=== PATIENT | female | born 1955 | race Caucasian/White ===

== ENCOUNTER 2017-10-31 23:57 | Emergency (ER) | payer OTHER ==
[2017-11-01 00:17] VITALS: BP 169/99; PULSE 119; TEMP 97.2; BMI 38.4
[2017-11-01] MEDS ORDERED: KETOROLAC TROMETHAMINE 60 MG/2 ML VIAL IM ONE (00:24)
[2017-11-01] MEDS ORDERED: KETOROLAC TROMETHAMINE 60 MG/2 ML VIAL ONE (00:27)
--- NOTE | 2017-11-01 00:35 | PDOC ---
History of Present Illness <Lillian Galindo - Last Filed: 11/01/17 00:35> - General History Source: Patient Exam Limitations: No Limitations - History of Present Illness Initial Comments: 11/01/17 01:13 The patient is a 62 year old female with a significant past medical history of HTN and COPD who presents to the emergency department complaining of left sided back pain for 1 week. The patient reports moderate left-buttock pain radiating down left leg. The patient denies any numbness or tingling. She states she can not handle the pain which is why visited the ED for further workup. She reports taking aleve, prednisone, and flexeril with no alleviation. She denies any history of falls. Of note, she had lumbar spine and iliac joint x-rays taken on 10/27. The patient denies chest pain, shortness of breath, headache, and dizziness. Denies fevers, chills, nausea, vomiting, bladder or bowel incontinence. Allergies: NKA Social history: No reported cigarette, alcohol, or drug use. PCP: Dr. Shi ([phone]) <Ju Allen - Last Filed: 11/01/17 01:14> - General Chief Complaint: Back Pain Stated Complaint: BACK PAIN Time Seen by Provider: 11/01/17 00:12 Past History - Past Medical History COPD: Yes HTN: Yes - Surgical History Appendectomy: Yes Cholecystectomy: Yes - Immunization History Immunization Up to Date: Yes - Suicide/Smoking/Psychosocial Hx Smoking Status: No Smoking History: Never smoked Years of Tobacco Use: 40 Have you smoked in the past 12 months: No Number of Cigarettes Smoked Daily: 20 If you are a former smoker, when did you quit?: 2 YRS AGO Information on smoking cessation initiated: No 'Breaking Loose' booklet given: 07/04/13 Hx Alcohol Use: No Drug/Substance Use Hx: No Substance Use Type: None Hx Substance Use Treatment: No <Lillian Galindo - Last Filed: 11/01/17 00:35> <Ju Allen - Last Filed: 11/01/17 01:14> - Past Medical History Allergies/Adverse Reactions: Allergies Allergy/AdvReac Type Severity Reaction Status Date / Time No Known Allergies Allergy Verified 11/01/17 00:16 Home Medications: Ambulatory Orders Losartan/Hydrochlorothiazide [Losartan-Hctz 100-25 mg Tab] 1 each PO DAILY 04/17 Lidocaine 5% Patch [Lidoderm Patch -] 1 patch TP DAILY #7 patch 03/23/16 Review of Systems - Review of Systems Able to Perform ROS?: Yes Comments:: CONSTITUTIONAL: Absent: fever, chills, diaphoresis, generalized weakness, malaise, loss of appetite HEENT: Absent: rhinorrhea, nasal congestion, throat pain, throat swelling, difficulty swallowing, mouth swelling, ear pain, eye pain, visual Changes CARDIOVASCULAR: Absent: chest pain, syncope, palpitations, irregular heart rate, lightheadedness , peripheral edema RESPIRATORY: Absent: cough, shortness of breath, dyspnea with exertion, orthopnea, wheezing, stridor, hemoptysis GASTROINTESTINAL: Absent: abdominal pain, abdominal distension, nausea, vomiting, diarrhea, constipation, melena, hematochezia GENITOURINARY: Absent: dysuria, frequency, urgency, hesitancy, hematuria, flank pain, genital pain MUSCULOSKELETAL:(+)Left sided back pain. (+)Left leg pain. Absent: myalgia, arthralgia, joint swelling SKIN: Absent: rash, itching, pallor HEMATOLOGIC/IMMUNOLOGIC: Absent: easy bleeding, easy bruising, lymphadenopathy, frequent infections ENDOCRINE: Absent: unexplained weight gain, unexplained weight loss, heat intolerance, cold intolerance NEUROLOGIC: Absent: headache, focal weakness or paresthesias, dizziness, unsteady gait, seizure, mental status changes, bladder or bowel incontinence PSYCHIATRIC: Absent: anxiety, depression, suicidal or homicidal ideation, hallucinations. <Ju Allen - Last Filed: 11/01/17 01:14> *Physical Exam - Vital Signs Last Vital Signs Temp Pulse Resp BP Pulse Ox 97.2 F L 119 H 20 169/99 97 11/01/17 00:16 11/01/17 00:16 11/01/17 00:16 11/01/17 00:16 11/01/17 00:16 <Lillian Galindo - Last Filed: 11/01/17 00:35> - Vital Signs Last Vital Signs Temp Pulse Resp BP Pulse Ox 97.2 F L 119 H 20 169/99 97 11/01/17 00:16 11/01/17 00:16 11/01/17 00:16 11/01/17 00:16 11/01/17 00:16 - Physical Exam Comments: GENERAL: (+)Overweight. Well developed, well nourished. Awake and alert. No acute distress. HEENT: Normocephalic, atraumatic. PERRLA, EOMI. No conjunctival pallor. Sclera are non- icteric. Moist mucous membranes. Oropharynx is clear. NECK: Supple. Full ROM. No JVD. Carotid pulses 2+ and symmetric, without bruits. No thyromegaly. No lymphadenopathy. CARDIOVASCULAR: (+)Tachycardic. No murmurs, rubs, or gallops. PULMONARY: No evidence of respiratory distress. Lungs clear to auscultation bilaterally. No wheezing, rales or rhonchi. ABDOMINAL: (+)Protuberant belly. Soft. Non-tender. No rebound or guarding. No organomegaly. Normoactive bowel sounds. MUSCULOSKELETAL Normal range of motion at all joints. No bony deformities or tenderness. No CVA tenderness. EXTREMITIES: (+)Tenderness on left buttock all the way down left leg. No cyanosis. No clubbing. No edema. No calf tenderness. SKIN: Warm and dry. Normal capillary refill. No rashes. No jaundice. NEUROLOGICAL: Alert, awake, appropriate. Cranial nerves 2-12 intact. No deficits to light touch and temperature in face, upper extremities and lower extremities. No motor deficits in the in face, upper extremities and lower extremities. Normoreflexic in the upper and lower extremities. Normal speech. Toes are down- going bilaterally. Gait is normal without ataxia. PSYCHIATRIC: Cooperative. Good eye contact. Appropriate mood and affect. <Ju Allen - Last Filed: 11/01/17 01:14> ED Treatment Course - Medications Given in the ED: ED Medications Discontinued Medications Generic Name Dose Route Start Last Admin Trade Name Freq PRN Reason Stop Dose Admin Ketorolac Tromethamine 60 mg 11/01/17 00:24 11/01/17 00:32 Toradol Injection - IM 11/01/17 00:25 60 mg ONCE ONE Administration Oxycodone/Acetaminophen 2 combo 11/01/17 00:25 11/01/17 00:32 Percocet 5/325 - PO 11/01/17 00:26 2 combo ONCE ONE Administration <Lillian Galindo - Last Filed: 11/01/17 00:35> - Medications Given in the ED: ED Medications Discontinued Medications Generic Name Dose Route Start Last Admin Trade Name Aracelis PRN Reason Stop Dose Admin Ketorolac Tromethamine 60 mg 11/01/17 00:24 11/01/17 00:32 Toradol Injection - IM 11/01/17 00:25 60 mg ONCE ONE Administration Oxycodone/Acetaminophen 2 combo 11/01/17 00:25 11/01/17 00:32 Percocet 5/325 - PO 11/01/17 00:26 2 combo ONCE ONE Administration <Ju Allen - Last Filed: 11/01/17 01:14> *DC/Admit/Observation/Transfer <Lillian Galindo - Last Filed: 11/01/17 00:35> - Attestations Scribe Attestion: Documentation prepared by Ju Allen, acting as medical billing service for Lillian Galindo MD. <Ju Allen - Last Filed: 11/01/17 01:14> Diagnosis at time of Disposition: Back pain with sciatica - Discharge Dispostion Disposition: HOME Condition at time of disposition: Stable - Referrals Referrals: Mateo Shi MD [Primary Care Provider] - - Patient Instructions Printed Discharge Instructions: DI for Back Pain With Sciatica Additional Instructions: PLEASE FOLLOW UP WITH DR SHI - Post Discharge Activity
== END 2017-11-01 00:43 | disposition home or self-care (01) ==
LOC: JER 23:57
PROC: 3E0233Z Introduction of Anti-inflammatory into Muscle, Percutaneous Approach (ICD-10-PCS; principal; 2017-10-31)
DX: M54.42 Lumbago with sciatica, left side (principal); I10 Essential (primary) hypertension; J44.9 Chronic obstructive pulmonary disease, unspecified; Z87.891 Personal history of nicotine dependence
CPT/HCPCS: 96372; 99281-25

== ENCOUNTER 2019-01-15 08:17 | Emergency (ER) | payer OTHER ==
[2019-01-15 08:24] VITALS: BP 153/89; PULSE 96; TEMP 97.6; BMI 40.7
[2019-01-15] MEDS ORDERED: METHOCARBAMOL 500 MG TABLET PO ONE (08:42)
[2019-01-15] MEDS ORDERED: KETOROLAC TROMETHAMINE 60 MG/2 ML VIAL IM ONE (08:42)
[2019-01-15] MEDS ORDERED: KETOROLAC TROMETHAMINE 60 MG/2 ML VIAL ONE (08:47)
[2019-01-15] MEDS ORDERED: METHOCARBAMOL 500 MG TABLET ONE (08:48)
--- NOTE | 2019-01-15 08:48 | PDOC ---
History of Present Illness - General Chief Complaint: Back Pain Stated Complaint: LOWER BACK PAIN Time Seen by Provider: 01/15/19 08:38 History Source: Patient Exam Limitations: Clinical Condition - History of Present Illness Initial Comments: 01/15/19 08:46 Patient with history of chronic back pains and hypertension present with complaint of right-sided lower back pain which has been worsening since yesterday and has not improved with Tylenol. Patient denies any trauma or injury to lower back. Denies numbness or tingling sensation. Denies saddle paresthesia, urinary or fecal incontinence Occurred: reports: yesterday Past History - Past Medical History Allergies/Adverse Reactions: Allergies Allergy/AdvReac Type Severity Reaction Status Date / Time No Known Allergies Allergy Verified 01/15/19 08:21 Home Medications: Ambulatory Orders Losartan/Hydrochlorothiazide [Losartan-Hctz 100-25 mg Tab] 1 each PO DAILY 04/17 Lidocaine 5% Patch [Lidoderm -] 1 patch TP DAILY #7 patch 01/15/19 Methocarbamol [Robaxin -] 500 mg PO BID PRN #14 tablet 01/15/19 Naproxen 500 mg PO BID PRN #20 tablet 01/15/19 COPD: Yes HTN: Yes - Surgical History Appendectomy: Yes Cholecystectomy: Yes - Immunization History Immunization Up to Date: Yes - Suicide/Smoking/Psychosocial Hx Smoking Status: No Smoking History: Never smoked Years of Tobacco Use: 40 Have you smoked in the past 12 months: No Number of Cigarettes Smoked Daily: 20 If you are a former smoker, when did you quit?: 2 YRS AGO 'Breaking Loose' booklet given: 07/04/13 Hx Alcohol Use: No Drug/Substance Use Hx: No Substance Use Type: None Hx Substance Use Treatment: No Review of Systems - Review of Systems Able to Perform ROS?: Yes Is the patient limited Greenlandic proficient: No Constitutional: No: Malaise, Weakness HEENTM: No: Symptoms Reported Respiratory: No: Symptoms reported Cardiac (ROS): No: Symptoms Reported Musculoskeletal: Yes: Symptoms Reported, See HPI, Back Pain (right side), Muscle Pain (righg side lower back pain) Neurological: No: Symptoms reported, Numbness, Paresthesia, Tingling, Dizziness All Other Systems: Reviewed and Negative *Physical Exam - Vital Signs Last Vital Signs Temp Pulse Resp BP Pulse Ox 97.6 F 96 H 20 153/89 99 07/23/19 08:17 01/15/19 08:17 01/15/19 08:17 01/15/19 08:17 01/15/19 08:17 - Physical Exam Comments: 01/15/19 08:44 GENERAL: Well developed, well nourished. Awake and alert in moderate acute distress. PULMONARY: No evidence of respiratory distress. MUSCULOSKELETAL : Moderate tenderness to right paravertebral muscle of L2-S1 which is worse with external rotation of the hip to the left. Negative straight leg raise with radiculopathy. No bony deformities Warm and dry. Normal capillary refill. NEUROLOGICAL: Alert, awake, appropriate. No motor deficits in the lower extremities. Gait is normal without ataxia. PSYCHIATRIC: Cooperative. Good eye contact. Appropriate mood and affect. General Appearance: Yes: Nourished, Appropriately Dressed, Apparent Distress, Moderate Distress Medical Decision Making - Medical Decision Making 01/15/19 08:46 Patient with history of chronic back pains and hypertension present with complaint of right-sided lower back pain which has been worsening since yesterday and has not improved with Tylenol. Patient denies any trauma or injury to lower back. Denies numbness or tingling sensation. Denies saddle paresthesia, urinary or fecal incontinence Exam significant for moderate tenderness to right paravertebral muscle of lower lumbar spine which is worse with external rotation of the hip to the left. Otherwise normal exam. Symptoms likely back spasm. Toradol 60 mg IM and Robaxin 500 milligrams by mouth ordered for pain and spasm. Patient be discharged home on naproxen when necessary for pain and Robaxin with orthopedist spine follow-up as needed *DC/Admit/Observation/Transfer Diagnosis at time of Disposition: Muscle spasm Back pain Qualifiers: Back pain location: low back pain Chronicity: acute Back pain laterality: right Sciatica presence: without sciatica Qualified Code(s): M54.5 - Low back pain - Discharge Dispostion Disposition: HOME Condition at time of disposition: Stable Decision to Admit order: No - Prescriptions Prescriptions: Lidocaine 5% Patch [Lidoderm -] 1 patch TP DAILY #7 patch Methocarbamol [Robaxin -] 500 mg PO BID PRN #14 tablet PRN Reason: Back Pain Naproxen 500 mg PO BID PRN #20 tablet PRN Reason: Back Pain - Referrals Referrals: Mateo Bejarano MD [Staff Physician] - - Patient Instructions Printed Discharge Instructions: DI for Back Spasm Additional Instructions: No heavy lifting or bending Apply heat therapy to the area 10 minutes every 6 hours for the next 2 days Continue taking naproxen 500 mg every 12 hours for pain with Robaxin muscle relaxer. Return to the nearest ER if numbness, weakness, severe pain, problems with urinating or having bowel movements. Call orthopedist today for an appointment for further evaluation - Post Discharge Activity
[2019-01-15] MEDS ORDERED: LIDOCAINE 5% TOPICAL PATCH TP ONE (08:57)
[2019-01-15] MEDS ORDERED: LIDOCAINE 5% TOPICAL PATCH ONE (08:59)
[2019-01-15] MEDS ORDERED: LIDOCAINE PATCH REMOVAL MC SCH (22:00)
== END 2019-01-15 09:00 | disposition home or self-care (01) ==
LOC: JERFT 08:17
PROC: 3E0233Z Introduction of Anti-inflammatory into Muscle, Percutaneous Approach (ICD-10-PCS; principal; 2019-01-15)
DX: M62.830 Muscle spasm of back (principal); M54.5 Low back pain; G89.29 Other chronic pain; I10 Essential (primary) hypertension; J44.9 Chronic obstructive pulmonary disease, unspecified
CPT/HCPCS: 96372; 99281-25

== ENCOUNTER 2019-01-15 20:03 | Emergency (ER) | payer OTHER ==
--- NOTE | 2019-01-15 20:05 | PDOC ---
Rapid Medical Evaluation Time Seen by Provider: 01/15/19 20:04 Medical Evaluation: Allergies Allergy/AdvReac Type Severity Reaction Status Date / Time No Known Allergies Allergy Verified 01/15/19 08:21 01/15/19 20:04 HPI: Lower back pain bounce back since this morning no relief from presecribed meds PE: No gross deficits ORDERS: Urine Discharge Disposition - Diagnosis Back pain - Referrals Referrals: Mateo Tomlinson MD [Primary Care Provider] - - Patient Instructions - Post Discharge Activity
[2019-01-15 20:21] VITALS: BP 168/88; PULSE 107; TEMP 98.1
[2019-01-15] MEDS ORDERED: KETOROLAC TROMETHAMINE 30 MG/1 ML VIAL IM ONE (23:03)
--- NOTE | 2019-01-15 23:07 | PDOC ---
Documentation entered by Dylan Silverman SCRIBE, acting as scribe for Lillian Galindo MD. Lillian Galindo MD: This documentation has been prepared by the Herrera armstrong Joel, SCRIBE, under my direction and personally reviewed by me in its entirety. I confirm that the documentation accurately reflects all work, treatment, procedures, and medical decision making performed by me. Attending Attestation - Resident Resident Name: Hiren Hodges - ED Attending Attestation I have performed the following: I have examined & evaluated the patient, The case was reviewed & discussed with the resident, I agree w/resident's findings & plan, Exceptions are as noted - HPI HPI: 01/15/19 23:03 The patient is a 63 year old female with a significant PMH of chronic lower back pain, COPD, and HTN who presents to the emergency department with 2 days of acute on chronic lower back pain. The patient was here this morning and given prescriptions for Robaxin, Lidoderm patch, and Naproxen before being discharged with a neurosurgery referral. She states she has not taken any pain medications after discharge this morning, and returns tonight as she states her back pain is still significant. The patient denies chest pain, shortness of breath, headache and dizziness. Denies fever, chills, nausea, vomit, diarrhea and constipation. Denies dysuria, frequency, urgency and hematuria. Allergies: NKA Past surgical history: Appendectomy. Cholecystectomy. Social history: No reported cigarette, alcohol, or drug use. PCP: Dr. Tomlinson - Physicial Exam PE: 01/15/19 23:03 63 yo female has acute on chronic back pain head ncat eyes geetha aomi neck supple lungs cta b/l cvs [id number] abd protuberant,nontender low back pain ,no midline vertebral lumbar pain skin warm and dry neuro axox3,ambulatory psych appropriate - Medical Decision Making 01/15/19 23:06 acute on chronic back pain in obese 63 yo female will give toradol IM and she will followup with her pain doctor
[2019-01-15] MEDS ORDERED: KETOROLAC TROMETHAMINE 30 MG/1 ML VIAL ONE (23:13)
--- NOTE | 2019-01-16 00:01 | PDOC ---
History of Present Illness - General Chief Complaint: Back Pain Stated Complaint: BACK PAIN Time Seen by Provider: 01/15/19 20:04 History Source: Patient, Family (Sister present at bedside. ), Old Records Exam Limitations: No Limitations - History of Present Illness Initial Comments: HPI: 63 y/o female presenting to [facility] ER complaining of right lower back pain. This is an acute on chronic condition for the past several years. Current episode started spontaneously yesterday morning and has worsened. She denies fevers, chills, trauma to the area, numbness or tingling in legs, saddle anesthesia, urinary retention, or fecal incontinence. Pt receives epidural injections q6 months (last received last Monday) for this pain by Dr. Harmon. Underwent outpatient MRI but does not recall the results or when it was performed. Of note, the pt was evaluated at this facility this morning. Treated with Toradol and Robaxin. Pt reports she took the Naproxen and Robaxin after she got home but the Robaxin gave her a muscle spasm, which is why she elected to return tonight. Medical Hx: - HTN - Chronic lower back pain Surgical Hx: - Cholecystectomy - Appendectomy Review of Systems: In addition to that documented in the HPI above, the additional ROS was obtained : Constitutional: Denies fevers or chills Head: Denies vision changes ENMT: Denies sore throat CV: Denies chest pain Resp: Denies SOB GI: Denies vomiting or diarrhea : Denies painful urination, hematuria, or increased urinary frequency MSK: Denies recent trauma Skin: Denies new rashes Neuro: Per HPI Endocrine: Denies polyuria Heme: Denies bleeding or bruising Physical Examination: Constitutional: Well-developed, well-nourished adult female in no acute distress or obvious discomfort. Obese body habitus. Found sitting upright on edge of hospital hallway bed. Alert and oriented x4. Answered all questions appropriately and completely. Speech was non-labored, non-pressured. Head: Normocephalic. No obvious external signs of trauma. Neck: Supple, trachea is midline. Cardiovascular / Chest: Regular rate and regular rhythm. No murmur, rubs, clicks , or gallops. Peripheral pulses: radial pulses full. Respiratory: Breathing unlabored. Equal chest rise and fall. Clear to auscultation bilaterally. No stridor, no wheezing, no rhonchi. Gastrointestinal: abdomen is soft, non-tender, non-distended. Neuro: Alert and oriented. Moving all four extremities spontaneously. No focal deficits. Lower extremity: proximal and distal strength 5/5. Craft Superintendent strength 5/5 - equal and symmetric. Sensation intact. Plantar flexion and dorsiflexion 5/5. Gait normal. Observed walking through the department unassisted without difficulty. MSK: Point tenderness to right lower back towards flank and towards the midline. No obvious midline spinal deformities. Pain made worse with lateral rotation. Lidoderm patch in place in RLQ. Skin: Warm, dry, and intact. No bruising, rashes, or other lesions. : No R or L CVA tenderness. Psych: Affect: appropriate. Mood: normal. MDM: *Reviewed vital signs, nursing notes, and prior visit documentation (if available). 63 y/o female presenting for second visit today for acute on chronic lower back pain. No red flags identified. Afebrile. Vitals unremarkable for hypotension. Triage vitals remarkable for mild tachycardia. Will trend. Low suspicion for acute clinical relevance. Low suspicion for cauda equina or paraspinal abscess. Suspect likely acute exacerbation of chronic msk lower back pain. Will not obtain new imaging given pts established h/o of similar pain and lack of neurologic or other red flag findings. RME ordered UA and urine culture. Ordered Toradol IM for pain relief. Pt presented w/ Lidoderm patch in place. UA revealed nitrites, 1+ leukocyte esterase, and mild pyuria. Possible acute cystitis, though not likely to be the cause of pain. Will prescribe Macrobid. 00:21 Pt left before receiving discharge instructions or being informed about UA results. Unable to obtain repeat vital signs. Left message on cell phone requesting call back. No call back received from pt. Hiren Hodges M.D., PGY2 Emergency Medicine Resident Past History - Past Medical History Allergies/Adverse Reactions: Allergies Allergy/AdvReac Type Severity Reaction Status Date / Time No Known Allergies Allergy Verified 01/15/19 08:21 Home Medications: Ambulatory Orders Losartan/Hydrochlorothiazide [Losartan-Hctz 100-25 mg Tab] 1 each PO DAILY 04/17 Lidocaine 5% Patch [Lidoderm -] 1 patch TP DAILY #7 patch 01/15/19 Methocarbamol [Robaxin -] 500 mg PO BID PRN #14 tablet 01/15/19 Naproxen 500 mg PO BID PRN #20 tablet 01/15/19 Nitrofurantoin Monohyd/M-Cryst [Macrobid -] 100 mg PO BID #14 capsule 01/16/19 COPD: Yes HTN: Yes - Surgical History Appendectomy: Yes Cholecystectomy: Yes - Immunization History Immunization Up to Date: Yes - Suicide/Smoking/Psychosocial Hx Smoking Status: No Smoking History: Never smoked Years of Tobacco Use: 40 Have you smoked in the past 12 months: No Number of Cigarettes Smoked Daily: 20 If you are a former smoker, when did you quit?: 2 YRS AGO 'Breaking Loose' booklet given: 07/04/13 Hx Alcohol Use: No Drug/Substance Use Hx: No Substance Use Type: None Hx Substance Use Treatment: No *Physical Exam - Vital Signs Last Vital Signs Temp Pulse Resp BP Pulse Ox 98.1 F 107 H 20 168/88 95 01/15/19 20:07 01/15/19 20:07 01/15/19 20:07 01/15/19 20:07 01/15/19 20:07 ED Treatment Course - Medications Given in the ED: ED Medications Discontinued Medications Generic Name Dose Route Start Last Admin Trade Name Freq PRN Reason Stop Dose Admin Ketorolac Tromethamine 30 mg 01/15/19 23:03 01/15/19 23:19 Toradol Injection - IM 01/15/19 23:04 30 mg ONCE ONE Administration *DC/Admit/Observation/Transfer Diagnosis at time of Disposition: Back pain Qualifiers: Back pain location: low back pain Chronicity: acute Back pain laterality: right Sciatica presence: without sciatica Qualified Code(s): M54.5 - Low back pain - Discharge Dispostion Disposition: ELOPED Decision to Admit order: No - Prescriptions Prescriptions: Nitrofurantoin Monohyd/M-Cryst [Macrobid -] 100 mg PO BID #14 capsule - Referrals Referrals: Mateo Tomlinson MD [Primary Care Provider] - - Patient Instructions Printed Discharge Instructions: DI for Low Back Pain Additional Instructions: You were seen today for lower back pain for the past two days. You physical exam does not suggest any life threatening illness. Your pain is likely secondary to your known chronic lower back pain. You were given a Ketorolac injection tonight. You can continue to take the Robaxin and the Naproxen that you were prescribed this morning. Take as directed on the package insert. Do not take more than the recommended dose. Do not mix the Naproxen with other NSAID medications such as Ibuprofen, Advil, or Motrin. Your urine test showed you may be suffering from a urinary tract infection. I have sent a prescription for antibiotics to your pharmacy. Take as directed on the package. Follow up with your primary care doctor or the doctor who manages your back pain within the next 2-3 days. You will need to call to make an appointment. Go to the nearest emergency department if your condition worsens or you feel like you need additional emergency evaluation. Print Language: LUXEMBOURGISH - Post Discharge Activity
[2019-01-16 00:07] LABS: URINE APPEARANCE CLOUDY; URINE BILIRUBIN NEGATIVE (NEGATIVE); URINE COLOR YELLOW; URINE GLUCOSE (UA) NEGATIVE (NEGATIVE); URINE KETONE TRACE (NEGATIVE); URINE PROTEIN NEGATIVE (NEGATIVE)
[2019-01-16 00:08] LABS: EPI CELLS 2 /HPF (0-5/HPF); URINE LEUK ESTERASE 1+ (NEGATIVE); URINE NITRITE POSITIVE (NEGATIVE); URINE WBC 5 /hpf (0-5)
[2019-01-16 00:09] LABS: URINE BACTERIA 20 /hpf (NEGATIVE)
== END 2019-01-16 01:18 | disposition left against medical advice (07) ==
LOC: JER 20:03
PROC: 3E0233Z Introduction of Anti-inflammatory into Muscle, Percutaneous Approach (ICD-10-PCS; principal; 2019-01-15)
DX: M54.5 Low back pain (principal); I10 Essential (primary) hypertension; J44.9 Chronic obstructive pulmonary disease, unspecified; G89.29 Other chronic pain
CPT/HCPCS: 81003; 87086; 87186; 96372; 99281-25

== ENCOUNTER 2021-03-29 17:34 | Emergency (ER) | payer OTHER ==
[2021-03-29 17:49] VITALS: BP 162/89; PULSE 96; TEMP 98.3; BMI 41.5
[2021-03-29] MEDS ORDERED: KETOROLAC TROMETHAMINE 30 MG/1 ML VIAL IM ONE (19:50)
[2021-03-29] MEDS ORDERED: LIDOCAINE 5% TOPICAL PATCH TP ONE (19:50)
[2021-03-29] MEDS ORDERED: diazePAM 5 MG TABLET PO ONE (19:59)
[2021-03-29] MEDS ORDERED: diazePAM 5 MG TABLET ONE (20:35)
[2021-03-29] MEDS ORDERED: LIDOCAINE 5% TOPICAL PATCH ONE (20:35)
[2021-03-29] MEDS ORDERED: KETOROLAC TROMETHAMINE 30 MG/1 ML VIAL ONE (20:35)
[2021-03-30] MEDS ORDERED: LIDOCAINE PATCH REMOVAL MC SCH (08:00)
== END 2021-03-29 21:10 | disposition home or self-care (01) ==
LOC: JERFT 17:34
PROC: 3E0233Z Introduction of Anti-inflammatory into Muscle, Percutaneous Approach (ICD-10-PCS; principal; 2021-03-29)
DX: M54.42 Lumbago with sciatica, left side (principal)
CPT/HCPCS: 99284-25

== ENCOUNTER 2021-03-29 22:52 | Emergency (ER) | payer OTHER ==
[2021-03-29 23:03] VITALS: BP 143/83; PULSE 101; TEMP 98.3; BMI 41.5
[2021-03-29] MEDS ORDERED: diphenhydrAMINE HCL 25 MG CAPSULE (FP) PO ONE (23:27)
[2021-03-29] MEDS ORDERED: hydrOXYzine PAMOATE 50 MG CAPSULE (FP) PO ONE (23:30)
[2021-03-29] MEDS ORDERED: ACETAMINOPHEN 500 MG TABLET (FP) PO ONE (23:30)
[2021-03-29] MEDS ORDERED: hydrOXYzine PAMOATE 50 MG CAPSULE (FP) ONE (23:40)
[2021-03-29] MEDS ORDERED: ACETAMINOPHEN 500 MG TABLET (FP) ONE (23:43)
== END 2021-03-30 00:30 | disposition home or self-care (01) ==
LOC: JER 22:52
DX: T42.4X5A Adverse effect of benzodiazepines, initial encounter (principal)
CPT/HCPCS: 93005; 93010; 99283-25; 99284-25

== ENCOUNTER 2022-06-19 21:15 | Emergency (ER) | payer OTHER ==
[2022-06-19 21:24] VITALS: BP 0/0; PULSE 106; RESP 18; TEMP 98.5; BMI 41.8
[2022-06-19] MEDS ORDERED: KETOROLAC TROMETHAMINE 60 MG/2 ML VIAL IM ONE (21:37)
[2022-06-19] MEDS ORDERED: METHOCARBAMOL 750 MG TABLET PO STA (21:37)
[2022-06-19] MEDS ORDERED: predniSONE 20 MG TABLET (UD) PO ONE (21:38)
[2022-06-19] MEDS ORDERED: KETOROLAC TROMETHAMINE 60 MG/2 ML VIAL ONE (21:40)
[2022-06-19] MEDS ORDERED: predniSONE 20 MG TABLET (UD) ONE (21:40)
[2022-06-19] MEDS ORDERED: METHOCARBAMOL 500 MG TABLET ONE (21:41)
== END 2022-06-19 23:07 | disposition home or self-care (01) ==
LOC: FER 21:15
PROC: 3E0233Z Introduction of Anti-inflammatory into Muscle, Percutaneous Approach (ICD-10-PCS; principal; 2022-06-19)
DX: M54.50 Low back pain, unspecified (principal)
CPT/HCPCS: 99284-25

== ENCOUNTER 2022-06-20 06:35 | Emergency (ER) | payer OTHER ==
[2022-06-20 06:47] VITALS: TEMP 97.6; BMI 41.8
[2022-06-20] MEDS ORDERED: KETOROLAC TROMETHAMINE 30 MG/1 ML VIAL IM ONE (07:20)
[2022-06-20] MEDS ORDERED: LIDOCAINE 5% TOPICAL PATCH TP ONE (07:20)
[2022-06-20] MEDS ORDERED: amLODIPine BESYLATE 5 MG TABLET (FP) PO ONE (07:47)
[2022-06-20] MEDS ORDERED: LOSARTAN POTASSIUM 50 MG TABLET PO ONE (07:47)
[2022-06-20] MEDS ORDERED: KETOROLAC TROMETHAMINE 30 MG/1 ML VIAL ONE (07:48)
[2022-06-20] MEDS ORDERED: LIDOCAINE 5% TOPICAL PATCH ONE (07:49)
[2022-06-20] MEDS ORDERED: LOSARTAN POTASSIUM 50 MG TABLET ONE (07:50)
[2022-06-20] MEDS ORDERED: amLODIPine BESYLATE 5 MG TABLET (FP) ONE (07:50)
[2022-06-20 08:32] VITALS: BP 166/99; PULSE 93; RESP 20
[2022-06-20] MEDS ORDERED: LIDOCAINE PATCH REMOVAL MC SCH (22:00)
== END 2022-06-20 08:39 | disposition home or self-care (01) ==
LOC: FER 06:35
DX: M54.50 Low back pain, unspecified (principal)
CPT/HCPCS: 99283-25

== ENCOUNTER 2022-06-23 07:46 | Emergency (ER) | payer OTHER ==
[2022-06-23 08:03] VITALS: RESP 16; TEMP 98.8; BMI 41.5
[2022-06-23] MEDS ORDERED: KETOROLAC TROMETHAMINE 60 MG/2 ML VIAL IM ONE (08:22)
[2022-06-23] MEDS ORDERED: ACETAMINOPHEN 500 MG TABLET (FP) PO ONE (08:23)
[2022-06-23] MEDS ORDERED: KETOROLAC TROMETHAMINE 30 MG/1 ML VIAL ONE (08:28)
[2022-06-23] MEDS ORDERED: ACETAMINOPHEN 500 MG TABLET (FP) ONE (08:28)
[2022-06-23 08:52] VITALS: BP 157/101; PULSE 104
== END 2022-06-23 09:18 | disposition home or self-care (01) ==
LOC: FER 07:46
PROC: 3E023GC Introduction of Other Therapeutic Substance into Muscle, Percutaneous Approach (ICD-10-PCS; principal; 2022-06-23)
DX: M54.50 Low back pain, unspecified (principal)
CPT/HCPCS: 99284-25

== ENCOUNTER 2022-06-25 17:05 | Emergency (ER) | payer OTHER ==
[2022-06-25 17:29] VITALS: BP 169/86; PULSE 102; RESP 20; TEMP 98.5; BMI 41.5
[2022-06-25] MEDS ORDERED: KETOROLAC TROMETHAMINE 30 MG/1 ML VIAL IM ONE (18:05)
[2022-06-25] MEDS ORDERED: KETOROLAC TROMETHAMINE 30 MG/1 ML VIAL ONE (18:09)
== END 2022-06-25 18:13 | disposition home or self-care (01) ==
LOC: JERFT 17:05 → JER 17:05 → JERFT 18:13
PROC: 3E023GC Introduction of Other Therapeutic Substance into Muscle, Percutaneous Approach (ICD-10-PCS; principal; 2022-06-25)
DX: M54.42 Lumbago with sciatica, left side (principal)
CPT/HCPCS: 99284-25

== ENCOUNTER 2022-06-25 22:34 | Emergency (ER) | payer OTHER ==
[2022-06-25 22:41] VITALS: BP 185/76; PULSE 96; RESP 19; TEMP 98.6; BMI 41.5
[2022-06-25] MEDS ORDERED: ACETAMINOPHEN 325 MG TABLET (FP) PO ONE (23:08)
== END 2022-06-25 23:24 | disposition home or self-care (01) ==
LOC: JER 22:34
DX: M54.42 Lumbago with sciatica, left side (principal)
CPT/HCPCS: 99283-25

== ENCOUNTER 2022-06-29 14:55 | Emergency (ER) | payer OTHER ==
[2022-06-29 15:11] VITALS: BMI 41.5
[2022-06-29] MEDS ORDERED: LIDOCAINE 5% TOPICAL PATCH TP ONE (15:49)
[2022-06-29] MEDS ORDERED: LIDOCAINE 5% TOPICAL PATCH ONE (15:52)
[2022-06-29 16:11] VITALS: BP 161/100; PULSE 106; RESP 20; TEMP 99.1
[2022-06-29] MEDS ORDERED: LIDOCAINE PATCH REMOVAL MC SCH (22:00)
== END 2022-06-29 16:11 | disposition home or self-care (01) ==
LOC: FER 14:55
DX: M54.50 Low back pain, unspecified (principal)
CPT/HCPCS: 99283-25

== ENCOUNTER 2022-07-19 20:40 | Emergency (ER) | payer OTHER ==
[2022-07-19 20:44] VITALS: BP 123/79; PULSE 85; RESP 18; TEMP 97.5; BMI 34.6
[2022-07-20] MEDS ORDERED: METOCLOPRAMIDE HCL INJECTION 10 MG/2 ML VIAL IVPB ONE (00:27)
[2022-07-20] MEDS ORDERED: SODIUM CHLORIDE 0.9% 500 ML INFUS.BAG IV ONE (00:27)
[2022-07-20] MEDS ORDERED: METOCLOPRAMIDE HCL INJECTION 10 MG/2 ML VIAL ONE (00:36)
[2022-07-20 00:59] LABS: BASO % 0.7 % (0-2.0); EOS % 1.8 % (0-4.5); HEMATOCRIT 42.3 % (32.4-45.2); HEMOGLOBIN 13.8 GM/dL (10.7-15.3); LYMPH % 18.7 % (8-40); MCH 28.4 pg (25.7-33.7); MCHC 32.6 g/dl (32.0-36.0); MEAN CELL VOLUME 87.1 fl (80-96); MEAN PLT VOLUME 6.1 fl (7.5-11.1); MONO % 7.4 % (3.8-10.2); NEUT % 71.4 % (42.8-82.8); PLATELET COUNT 408 10^3/uL (134-434); RBC 4.85 M/mm3 (3.60-5.2); RDW 15.3 % (11.6-15.6); WHITE BLOOD COUNT 6.5 K/mm3 (4.0-10.0)
[2022-07-20 01:21] LABS: CALCIUM 9.3 mg/dL (8.5-10.1)
[2022-07-20 01:22] LABS: ALBUMIN 3.6 g/dl (3.4-5.0); BLOOD UREA NITROGEN 28.8 mg/dL (7-18); MAGNESIUM 1.9 mg/dL (1.8-2.4)
[2022-07-20 01:24] LABS: CREATININE 0.7 mg/dL (0.55-1.3)
[2022-07-20 01:26] LABS: BILIRUBIN,TOTAL 0.2 mg/dL (0.2-1); TOT PROT 7.5 g/dl (6.4-8.2)
== END 2022-07-20 02:16 | disposition home or self-care (01) ==
LOC: JERFT 20:40 → JER 20:40
PROC: 3E033GC Introduction of Other Therapeutic Substance into Peripheral Vein, Percutaneous Approach (ICD-10-PCS; principal; 2022-07-19)
PROC: 3E033GC Introduction of Other Therapeutic Substance into Peripheral Vein, Percutaneous Approach (ICD-10-PCS; 2022-07-19)
DX: G43.909 Migraine, unspecified, not intractable, without status migrainosus (principal)
CPT/HCPCS: 0241U-QW; 36415; 80053; 83690; 83735; 84484; 85025; 99284-25

== ENCOUNTER 2024-04-06 11:50 | Inpatient (IN) | payer OTHER ==
[2024-04-06 13:38] LABS: MCH 27.5 pg (25.7-33.7); MCHC 33.4 g/dl (32.0-36.0); MEAN CELL VOLUME 82.3 fl (80-96); MEAN PLT VOLUME 7.5 fl (7.5-11.1); PLATELET COUNT 387 10^3/uL (134-434); RBC 4.37 M/mm3 (3.60-5.2); RDW 14.4 % (11.6-15.6); WHITE BLOOD COUNT 16.2 K/mm3 (4.0-10.0)
[2024-04-06 13:47] LABS: INR 1.22 (0.83-1.09)
[2024-04-06 13:49] LABS: CHLORIDE 104 mmol/L (98-107); SODIUM 136 mmol/L (136-145)
[2024-04-06 13:50] LABS: ACTIVATED PTT 27.7 SECONDS (25.2-36.5)
[2024-04-06 13:51] LABS: POTASSIUM 2.8 mmol/L (3.5-5.1)
[2024-04-06 13:52] LABS: ALBUMIN 2.3 g/dl (3.4-5.0); ANION GAP 13 mmol/L (4-13); CALCIUM 9.1 mg/dL (8.5-10.1); CO2 19 mmol/L (21-32)
[2024-04-06 13:53] LABS: GLUCOSE,RANDOM 151 mg/dL (74-106)
[2024-04-06 13:55] LABS: SGPT/ALT 38 U/L (13-61)
[2024-04-06 13:56] LABS: CREATININE 1.5 mg/dL (0.55-1.3); SGOT/AST 60 U/L (15-37)
[2024-04-06 13:57] LABS: BILIRUBIN,TOTAL 0.7 mg/dL (0.2-1); TOT PROT 6.8 g/dl (6.4-8.2)
[2024-04-06 13:58] LABS: ALK PHOS 133 U/L (45-117)
[2024-04-06 14:10] LABS: BLOOD UREA NITROGEN 62.2 mg/dL (7-18)
[2024-04-06] MEDS ORDERED: KCL 10 MEQ IVPB 10 MEQ/100 ML INFUS.BAG IVPB ONE (14:21)
[2024-04-06] MEDS ORDERED: ACETAMINOPHEN INJECTION 100 ML ONE (14:21)
[2024-04-06] MEDS ORDERED: POTASSIUM CHLORIDE ORAL LIQUID 20 MEQ/15 ML ONE ×2 (14:21→19:54)
[2024-04-06 14:23] LABS: ANISOCYTOSIS 0; HELMET CELLS 0; HOWELL-JOLLY BODIES 0; MACROCYTOSIS 0; OVALOCYTE 0; ROULEAU 0; SICKELED CELLS 0; TARGET CELLS 0; TEAR DROP CELLS 0; TOXIC GRANULATION 0
[2024-04-06] MEDS: POTASSIUM CHLORIDE ORAL LIQUID 20 MEQ/15 ML PO ONE ×2 (14:41→20:09)
[2024-04-06] MEDS: KCL 10 MEQ IVPB 10 MEQ/100 ML INFUS.BAG IVPB SCH (14:41)
[2024-04-06] MEDS: SODIUM CHLORIDE 1,000 ML IV ONE (14:41)
[2024-04-06] MEDS: ACETAMINOPHEN 1000 MG/100 ML BAG IVPB ONE (14:41)
[2024-04-06] MEDS: SODIUM CHLORIDE 1,000 ML IV STA (17:30)
[2024-04-06 19:22] LABS: POTASSIUM 3.3 mmol/L (3.5-5.1)
[2024-04-06 19:23] LABS: CALCIUM 7.8 mg/dL (8.5-10.1)
[2024-04-06 19:27] LABS: CREATININE 1.4 mg/dL (0.55-1.3)
[2024-04-06] MEDS ORDERED: MAGNESIUM 1GM/D5W - 1 GM/100 ML IVPB IVPB ONE (19:54)
[2024-04-06] MEDS: MAGNESIUM SULF 50% (8.12 MEQ/2 ML-1 GM VIAL) IVPB ONE (20:09)
[2024-04-06] MEDS ORDERED: SODIUM CHLORIDE 1,000 ML IV STA (20:31)
[2024-04-06] MEDS ORDERED: ACETAMINOPHEN 650 MG/20.3 ML ORAL SOLUTION (CUPS) ONE (21:24)
[2024-04-06] MEDS: ACETAMINOPHEN 650 MG/20.3 ML ORAL SOLUTION (CUPS) PO PRN (21:31)
[2024-04-06] MEDS ORDERED: PIPERACILLIN/TAZOB 3.375 GM 3.375 GM in DEXTROSE 5%-WATER - 50 ML IVPB SCH (22:30)
[2024-04-07] MEDS: PIPERACILLIN/TAZOB 3.375 GM 3.375 GM in DEXTROSE 5%-WATER - 50 ML IVPB SCH
[2024-04-07] MEDS: SODIUM CHLORIDE 1,000 ML with POTASSIUM CHLORIDE 40 MEQ IV SCH (01:23)
[2024-04-07] MEDS: MELATONIN 5 MG TABLETS PO ONE (02:23)
[2024-04-07] MEDS: FLUCONAZOLE 150 MG TABLET PO ONE (03:12)
[2024-04-07] MEDS ORDERED: SODIUM CHLORIDE 1,000 ML with POTASSIUM CHLORIDE 40 MEQ IV SCH (04:45)
[2024-04-07] MEDS: INSULIN ASPART SLIDING SCALE (NOVOLOG) 1 VIAL SQ SCH (06:43)
[2024-04-07 06:50] LABS: EPI CELLS 9 /uL (0-25.1); HYALINE CASTS 15 /uL (0-3.1); PH,URINE 5.5 (5.0-8.0); URINE APPEARANCE CLOUDY; URINE BACTERIA >9,000 /uL (0-1359); URINE BILIRUBIN NEGATIVE (NEGATIVE); URINE COLOR YELLOW; URINE GLUCOSE (UA) NEGATIVE (NEGATIVE); URINE KETONE NEGATIVE (NEGATIVE); URINE LEUK ESTERASE 2+ (NEGATIVE); URINE NITRITE NEGATIVE (NEGATIVE); URINE PROTEIN 2+ (NEGATIVE); URINE RBC 98 /uL (0-23.9); URINE WBC 315 /uL (0-25.8)
[2024-04-07] MEDS: HEPARIN NA (PORCINE) 5,000 UNITS/ML 1ML VIAL SQ SCH (07:09)
[2024-04-07] MEDS: amLODIPine BESYLATE 5 MG TABLET (FP) PO SCH (10:44)
[2024-04-07] MEDS: CLOTRIMAZOLE/BETAMET DIPROP 15 GM TUBE TP SCH (10:44)
[2024-04-07 11:05] LABS: HEMATOCRIT 32.7 % (32.4-45.2); HEMOGLOBIN 10.6 GM/dL (10.7-15.3); MCH 27.3 pg (25.7-33.7); MCHC 32.4 g/dl (32.0-36.0); MEAN CELL VOLUME 84.3 fl (80-96); MEAN PLT VOLUME 7.5 fl (7.5-11.1); PLATELET COUNT 386 10^3/uL (134-434); RBC 3.87 M/mm3 (3.60-5.2); WHITE BLOOD COUNT 14.1 K/mm3 (4.0-10.0)
[2024-04-07] MEDS: VARENICLINE TARTRATE 1 MG TAB PO SCH (11:09)
[2024-04-07] MEDS: NEBIVOLOL 5 MG TABLET (FP) PO SCH (11:09)
[2024-04-07 11:22] LABS: POTASSIUM 3.8 mmol/L (3.5-5.1)
[2024-04-07 11:27] LABS: CALCIUM 8.5 mg/dL (8.5-10.1)
[2024-04-07 11:28] LABS: ALBUMIN 1.9 g/dl (3.4-5.0); BLOOD UREA NITROGEN 44.3 mg/dL (7-18); MAGNESIUM 1.8 mg/dL (1.8-2.4)
[2024-04-07 11:30] LABS: CREATININE 1.1 mg/dL (0.55-1.3)
[2024-04-07 11:31] LABS: BILIRUBIN,TOTAL 0.6 mg/dL (0.2-1); PHOSPHOROUS 1.9 mg/dL (2.5-4.9); TOT PROT 5.8 g/dl (6.4-8.2)
[2024-04-07 12:18] LABS: ANISOCYTOSIS 0; HELMET CELLS 0; HOWELL-JOLLY BODIES 0; MACROCYTOSIS 0; OVALOCYTE 0; ROULEAU 0; SICKELED CELLS 0; TARGET CELLS 0; TEAR DROP CELLS 0; TOXIC GRANULATION 0
[2024-04-07] MEDS: CEFTRIAXONE 1 GM in DEXTROSE 5%-WATER - 50 ML IVPB SCH (14:56)
[2024-04-07] MEDS: NYSTATIN POWDER 100,000 UNITS/GM - 15 GM TOPICAL POWDER TP SCH (14:59)
[2024-04-08] MEDS: ACETAMINOPHEN 1000 MG/100 ML BAG IVPB ONE ×2 (02:01→10:27)
[2024-04-08] MEDS ORDERED: FLUCONAZOLE 150 MG TABLET PO SCH (10:00)
[2024-04-08 11:29] LABS: MCH 27.7 pg (25.7-33.7); MCHC 33.4 g/dl (32.0-36.0); MEAN CELL VOLUME 82.9 fl (80-96); MEAN PLT VOLUME 7.1 fl (7.5-11.1); PLATELET COUNT 440 10^3/uL (134-434); RBC 3.62 M/mm3 (3.60-5.2); RDW 14.9 % (11.6-15.6); WHITE BLOOD COUNT 12.7 K/mm3 (4.0-10.0)
[2024-04-08 11:53] LABS: POTASSIUM 3.5 mmol/L (3.5-5.1)
[2024-04-08 12:00] LABS: ALBUMIN 1.9 g/dl (3.4-5.0); BLOOD UREA NITROGEN 26.8 mg/dL (7-18); CALCIUM 8.7 mg/dL (8.5-10.1); MAGNESIUM 1.6 mg/dL (1.8-2.4)
[2024-04-08 12:03] LABS: CREATININE 0.8 mg/dL (0.55-1.3); PHOSPHOROUS 2.4 mg/dL (2.5-4.9)
[2024-04-08 12:04] LABS: BILIRUBIN,TOTAL 0.4 mg/dL (0.2-1); TOT PROT 5.7 g/dl (6.4-8.2)
[2024-04-08] MEDS: MAGNESIUM 1GM/D5W - 1 GM/100 ML IVPB IVPB ONE (14:32)
[2024-04-08] MEDS: NAPH,MB-DB/K PH,MBDB POWDER PACKET PO ONE (14:32)
[2024-04-08 15:07] LABS: ARTERIAL BLOOD GAS BASE EXCESS -4.6 mmol/L (-2-2); ARTERIAL BLOOD GAS PO2 60.8 mmHg (80-100); ARTERIAL BLOOD GAS pH 7.459 (7.350-7.450)
[2024-04-08 15:14] LABS: ALLENS TEST POSITIVE
[2024-04-08] MEDS: LIDOCAINE 4% PATCH TP SCH (18:38)
[2024-04-08] MEDS: LIDOCAINE PATCH REMOVAL MC SCH (22:29)
[2024-04-09 10:25] LABS: HEMATOCRIT 30.3 % (32.4-45.2); MCH 27.4 pg (25.7-33.7); MCHC 32.9 g/dl (32.0-36.0); MEAN CELL VOLUME 83.3 fl (80-96); MEAN PLT VOLUME 7.2 fl (7.5-11.1); PLATELET COUNT 514 10^3/uL (134-434); RBC 3.63 M/mm3 (3.60-5.2); RDW 15.2 % (11.6-15.6); WHITE BLOOD COUNT 12.7 K/mm3 (4.0-10.0)
[2024-04-09 11:00] LABS: POTASSIUM 3.3 mmol/L (3.5-5.1)
[2024-04-09 11:04] LABS: ALBUMIN 1.9 g/dl (3.4-5.0); BLOOD UREA NITROGEN 15.4 mg/dL (7-18); CALCIUM 8.3 mg/dL (8.5-10.1)
[2024-04-09 11:07] LABS: ANISOCYTOSIS 3+; CREATININE 0.7 mg/dL (0.55-1.3); MACROCYTOSIS 0
[2024-04-09 11:09] LABS: BILIRUBIN,TOTAL 0.5 mg/dL (0.2-1); TOT PROT 5.7 g/dl (6.4-8.2)
[2024-04-09 14:43] VITALS: BMI 49.8
[2024-04-09] MEDS: MELATONIN 5 MG TABLETS PO ONE (22:15)
[2024-04-10] MEDS: POTASSIUM CHLORIDE ORAL LIQUID 20 MEQ/15 ML PO ONE (08:55)
[2024-04-10 09:53] LABS: HEMATOCRIT 31.4 % (32.4-45.2); HEMOGLOBIN 10.3 GM/dL (10.7-15.3); MCH 27.5 pg (25.7-33.7); MCHC 32.9 g/dl (32.0-36.0); MEAN CELL VOLUME 83.7 fl (80-96); MEAN PLT VOLUME 7.1 fl (7.5-11.1); PLATELET COUNT 580 10^3/uL (134-434); RBC 3.75 M/mm3 (3.60-5.2); RDW 15.4 % (11.6-15.6); WHITE BLOOD COUNT 12.3 K/mm3 (4.0-10.0)
[2024-04-10 10:08] LABS: CALCIUM 8.6 mg/dL (8.5-10.1)
[2024-04-10 10:09] LABS: MAGNESIUM 1.3 mg/dL (1.8-2.4)
[2024-04-10 10:12] LABS: CREATININE 0.7 mg/dL (0.55-1.3); PHOSPHOROUS 4.2 mg/dL (2.5-4.9)
[2024-04-10 10:13] LABS: BILIRUBIN,TOTAL 0.5 mg/dL (0.2-1)
[2024-04-10 10:37] LABS: ANISOCYTOSIS 1+; MACROCYTOSIS 1+; OVALOCYTE 1+; TEAR DROP CELLS 1+
[2024-04-10] MEDS: MAGNESIUM 1GM/D5W - 1 GM/100 ML IVPB IVPB ONE (12:13)
[2024-04-10] MEDS: MAGNESIUM SULF 50% (8.12 MEQ/2 ML-1 GM VIAL) IVPB ONE (18:07)
[2024-04-10] MEDS: MELATONIN 5 MG TABLETS PO ONE (21:45)
[2024-04-10] MEDS: CEPHALEXIN MONOHYDRATE 500 MG CAPSULE (UD) PO SCH (21:45)
[2024-04-11] MEDS ORDERED: CEPHALEXIN MONOHYDRATE 500 MG CAPSULE (UD) PO SCH (06:00)
[2024-04-11 10:12] LABS: HEMATOCRIT 30.7 % (32.4-45.2); MCH 27.6 pg (25.7-33.7); MCHC 32.5 g/dl (32.0-36.0); MEAN PLT VOLUME 6.8 fl (7.5-11.1); PLATELET COUNT 590 10^3/uL (134-434); RBC 3.61 M/mm3 (3.60-5.2); RDW 15.3 % (11.6-15.6); WHITE BLOOD COUNT 10.8 K/mm3 (4.0-10.0)
[2024-04-11 10:43] LABS: ANISOCYTOSIS 3+; MACROCYTOSIS 0
[2024-04-11 10:58] LABS: POTASSIUM 3.9 mmol/L (3.5-5.1)
[2024-04-11 11:06] LABS: ALBUMIN 2.1 g/dl (3.4-5.0); BLOOD UREA NITROGEN 12.3 mg/dL (7-18); CALCIUM 8.7 mg/dL (8.5-10.1)
[2024-04-11 11:07] LABS: MAGNESIUM 1.6 mg/dL (1.8-2.4)
[2024-04-11 11:10] LABS: CREATININE 0.6 mg/dL (0.55-1.3); PHOSPHOROUS 3.7 mg/dL (2.5-4.9)
[2024-04-11 11:11] LABS: BILIRUBIN,TOTAL 0.4 mg/dL (0.2-1); TOT PROT 6.1 g/dl (6.4-8.2)
[2024-04-11] MEDS: MAGNESIUM SULFATE IN WATER 2 GM/50 ML IVPB IVPB ONE (15:18)
[2024-04-12 11:33] LABS: HEMATOCRIT 30.3 % (32.4-45.2); HEMOGLOBIN 9.9 GM/dL (10.7-15.3); MCH 27.6 pg (25.7-33.7); MCHC 32.6 g/dl (32.0-36.0); MEAN CELL VOLUME 84.8 fl (80-96); PLATELET COUNT 603 10^3/uL (134-434); RBC 3.58 M/mm3 (3.60-5.2); RDW 15.3 % (11.6-15.6); WHITE BLOOD COUNT 11.2 K/mm3 (4.0-10.0)
[2024-04-12 12:09] LABS: POTASSIUM 3.9 mmol/L (3.5-5.1)
[2024-04-12 12:11] LABS: CALCIUM 8.2 mg/dL (8.5-10.1)
[2024-04-12 12:13] LABS: MAGNESIUM 1.7 mg/dL (1.8-2.4)
[2024-04-12 12:15] LABS: CREATININE 0.6 mg/dL (0.55-1.3); PHOSPHOROUS 3.4 mg/dL (2.5-4.9)
[2024-04-12 12:26] LABS: ANISOCYTOSIS 0; MACROCYTOSIS 0
[2024-04-12] MEDS ORDERED: MAGNESIUM SULFATE IN WATER 2 GM/50 ML IVPB IVPB ONE (13:07)
[2024-04-12] MEDS: MAGNESIUM 2GM/50ML STERILE WATER IVPB IVPB ONE (13:31)
[2024-04-12] MEDS ORDERED: SODIUM CHLORIDE 0.45% 1,000 ML IV SCH (14:30)
[2024-04-13 10:13] VITALS: RESP 20
[2024-04-13 14:03] VITALS: BP 124/68; PULSE 88; TEMP 98.1
== END 2024-04-13 19:00 | DRG 641 ==
LOC: JER 11:50 → JERBED 20:41 → J6S 22:16
PROVIDERS: ADMIT Internal Medicine; ATTEND Internal Medicine
DX: E86.1 Hypovolemia (principal); N17.9 Acute kidney failure, unspecified; N39.0 Urinary tract infection, site not specified; Z68.42 Body mass index [BMI] 45.0-49.9, adult; K52.1 Toxic gastroenteritis and colitis; E87.6 Hypokalemia; E83.42 Hypomagnesemia; E83.39 Other disorders of phosphorus metabolism; E11.65 Type 2 diabetes mellitus with hyperglycemia; I10 Essential (primary) hypertension; E66.01 Morbid (severe) obesity due to excess calories; R00.0 Tachycardia, unspecified; T38.3X5A Adverse effect of insulin and oral hypoglycemic [antidiabetic] drugs, initial encounter; J44.9 Chronic obstructive pulmonary disease, unspecified; M54.50 Low back pain, unspecified; E87.20 Acidosis, unspecified; G47.33 Obstructive sleep apnea (adult) (pediatric); B36.9 Superficial mycosis, unspecified; B96.1 Klebsiella pneumoniae [K. pneumoniae] as the cause of diseases classified elsewhere; K76.0 Fatty (change of) liver, not elsewhere classified
CPT/HCPCS: 0241U-QW; 36415; 36600; 70450-TC; 71045-TC-FY; 74177-TC; 80048; 80053; 81003; 82436; 82803; 82962; 83036; 83735; 84100; 84133; 84300; 84484; 85025; 85027; 85610; 85730; 86850; 86900; 86901; 87040; 87081; 87086; 87186; 87635; 93005; 93010; 97116-GP; 97162-GP; 99285-25; J0131; J1644